=== PATIENT | female | born 1965 | race Caucasian/White ===

== ENCOUNTER 2025-01-30 03:17 | Emergency (ER) | payer OTHER, SELFPAY ==
[2025-01-30 03:19] VITALS: BP 137/81
[2025-01-30 03:43] LABS: Hematocrit 34.2 % (37.0-47.0); Hemoglobin 11.3 g/dL (12.0-16.0); Mean Corp Hgb Conc. 33.0 g/dL (33.0-37.0); Mean Corpuscular Volume 90.7 fL (81.0-99.0); Nucleated Red Blood Cells % 0 %; Platelet Count 288 10^3/uL (130-400); Red Cell Dist. Width 13.2 % (11.5-14.5)
[2025-01-30 04:02] LABS: ALT (SGPT) 16 U/L (0-35); AST (SGOT) 21 U/L (14-36); Albumin 4.1 g/dl (3.5-5.0); Alkaline Phosphatase 87 U/L (38-126); Blood Urea Nitrogen 21 mg/dl (7-17); Calcium 9.4 mg/dl (8.4-10.2); Carbon Dioxide 29 mmol/L (22-30); Chloride 105 mmol/L (98-107); Glucose 115 mg/dl (70-99); Lipase 121 U/L (23-300); Potassium 4.2 mmol/L (3.5-5.1); Sodium 138 mmol/L (135-145); Total Protein 6.9 g/dl (6.3-8.2); eGFR > 60.00
[2025-01-30 04:06] LABS: Troponin I < 0.012 ng/ml
[2025-01-30 06:15] VITALS: BMI 27.9
[2025-01-30 06:17] VITALS: BP 114/64
[2025-01-30 07:00] VITALS: BP 104/60
--- NOTE | 2025-01-30 07:45 | ED.GENMED ---
History of Present Illness
General
Chief Complaint: Abdominal Pain
Source: patient
Exam Limitations: none
Time Seen by Provider: 01/30/25 07:36
History of Present Illness
History of Present Illness:
59-year-old female presents complaining of abdominal pain that started at 9 PM last night that was on both sides radiate around to the back. It is been constant since then. The pain is mainly lower. No urinary symptoms chest pain or shortness of
breath. No fever. No prior abdominal surgical history. She was concerned as her father early of a heart attack.
Past History
Past History
ED Past Medical History: GERD and Other (Back pain, cervical disc problemS)
ED Past Surgical History: Other (laporoscopy)
Social History
Tobacco: Non-smoker
Alcohol: Occasional
Drug: None
Personal:
Living: with family
Employment: Employed
Family History
Family History: Early CAD and Other (No personal or family history pulmonary embolism or aortic dissection)
Phy Exam
Physical Exam
Physical Exam:
General: Well-appearing female no acute respiratory distress
HEENT normal cephalic atraumatic
Heart: Regular rate and rhythm
Lungs: Clear no wheeze
Abdomen is soft but tender to the lower abdomen bilaterally. She is also mildly tender to the epigastric area.
He is: No cyanosis
Course
Orders/Labs/Results
Orders:
Orders
01/30/25 03:27
EKG [Electrocardiogram (*1)] Urgent
Reason for Study: Abdominal Pain
EKG- Treatment ONCE
01/30/25 03:34
Complete Blood Count/With Diff Urgent
Comprehensive Metabolic Panel Urgent
Lipase Urgent
Troponin I Urgent
01/30/25 07:44
Ketorolac [Toradol] 15 mg IV NOW STA
01/30/25 07:45
CT Abd/pelvis W Iv Cont Urgent
Comment:
Reason For Exam: abdominal pain
01/30/25 09:56
Amoxicillin 875 mg/Clav 125 mg [Augmentin 875 mg/125 mg] 1 tablet PO NOW STA
Abnormal Lab Results
01/30/25
03:34
RBC 3.77 L 10^6/uL
(4.20-5.40)
Hgb 11.3 L g/dL
(12.0-16.0)
Hct 34.2 L %
(37.0-47.0)
Absolute Neuts (auto) 7.9 H 10^3/uL
(1.4-6.5)
Absolute Monos (auto) 0.7 H 10^3/uL
(0.1-0.6)
Neutrophils % 76.5 H %
(42.2-75.2)
Lymphocytes % 12.6 L %
(20.5-51.1)
BUN 21 H mg/dl
(7-17)
Glucose 115 H mg/dl
(70-99)
01/30/25 03:34
01/30/25 03:34
Vital Signs
Initial and Last Documented VS:
Initial Vital Signs
Temp Pulse Resp BP Pulse Ox
98 F 90 16 137/81 100
01/30/25 03:19 01/30/25 03:19 01/30/25 03:19 01/30/25 03:19 01/30/25 03:19
Last Documented Vital Signs
Temp Pulse Resp BP Pulse Ox
98 F 81 18 114/64 97
01/30/25 03:19 01/30/25 06:52 01/30/25 06:52 01/30/25 06:17 01/30/25 07:48
MDM/Problems Addressed
Differential Diagnosis Includes:
Abdominal pain. Consider versus diverticulitis versus bowel obstruction biliary colic and appendicitis on the list however the pain is quite diffuse. Patient concerned about cardiac related issues however her EKG shows normal sinus rhythm without
ischemic changes and a rate of 77 and initial troponin is undetectable. Given tenderness on exam to the abdomen and negative cardiac workup do not suspect ACS. Lipase is normal. Will order Toradol for discomfort and CT of the abdomen
*Pulse Oximetry
SaO2: 97
Oxygen Mode of Delivery: Room air
Patient hypoxic: no
*Critical Care Note
Total Time (30-74mins, 75-104mins- exclusive of procedures): Not Applicable
Update Note
Update Note:
CT demonstrates acute diverticulitis without evidence of perforation or abscess. Labs reviewed without significant finding. Patient notes some improvement with Toradol. She has sensitivity to Cipro which she got a rash. Will treat diverticulitis
with Augmentin.
ED Attending Note
-
Portions of this chart may have been created with voice recognition software.� Occasional wrong word or��sound alike� substitutions may have occurred due to the inherent limitations of voice recognition software.
Discharge Plan
Departure
Patient Disposition: Home (Routine Discharge)
Date of Disposition: 01/30/25
Time of Disposition: 09:58
Patient with high blood pressure during this ER visit?: No
Discharge Problem:
Diverticulitis
Instructions: Diverticulitis (DC)
Prescriptions:
New
amoxicillin-pot clavulanate 875-125 mg tablet
1 tab PO BID Qty: 20 0RF
No Action
omeprazole 20 mg Tablet,Delayed Release (Dr/Ec)
20 mg PO HS
calcium lactate 100 mg calcium Tablet
100 mg PO HS
Betafood
1 tab PO BID
Ligaplex 2
1 cap PO BID
Magnesium Taurate
1 cap PO QPM
Zymex 11
2 cap PO HS
Referrals:
Antonina Mathis, DO [Family Provider, Internal Medicine]
Activity Restrictions/Additional Instructions:
Drink plenty of clear liquids. Use Augmentin as directed. Return here for increasing pain fever or vomiting. Follow-up with your doctor otherwise
Interventions
Interventions:
*Risk Screen - Suicide Last Done: 01/30/25 03:19
*General Assessment Last Done: 01/30/25 03:19
*Neglect/Abuse Screening Last Done: 01/30/25 06:16
*ED- Fall Risk Assessment Last Done: 01/30/25 06:16
*ED COVID-19 Vaccine History Last Done: 01/30/25 06:16
VC-Hfxkky-Wpxbqhucun Assessment Last Done: 01/30/25 06:18
Discharge Date and Time
Print Language: BENGALI
[2025-01-30 08:00] VITALS: BP 106/70
[2025-01-30] MEDS: TORADOL 15 MG IV (08:20)
[2025-01-30] MEDS: AUGMENTIN 875 MG/125 MG 1 TABLET PO (10:04)
== END 2025-01-30 10:05 | disposition home or self-care (01) ==
LOC: EMR 03:17
PROVIDERS: Student in an Organized Health Care Education/Training Program; EMERGENCY PHYSICIAN Emergency Medicine; FAMILY PHYSICIAN Internal Medicine
DX: K57.32 Diverticulitis of large intestine without perforation or abscess without bleeding (principal); K21.9 Gastro-esophageal reflux disease without esophagitis; Z82.49 Family history of ischemic heart disease and other diseases of the circulatory system; Z63.4 Disappearance and death of family member
CPT/HCPCS: 99284; 74177; 80053; 83690; 84484; 85025; 93005; Q9967